=== PATIENT | female | born 1945 | race Caucasian/White ===

== ENCOUNTER 2023-08-16 13:12 | Outpatient (CLI) | payer MEDICARE, OTHER, SELFPAY ==
--- NOTE | ~2023-08-16 | MR_ITS ---
EXAMINATION: MR lumbar spine wo con DATE: 08/16/2023 14:08 INDICATION: Other low back pain. TECHNIQUE: Magnetic resonance imaging (MRI) of the lumbar spine was performed without intravenous con trast. COMPARISON: None FINDINGS: There is 23 degrees levoscoliosis of thoracolumbar spine. There is 4 mm anterolisthesis of L4 on L5. There is a chronic burst fracture of L1 with 1/5 loss of height. There is severely decrease d disc height at T11-T12, mildly decreased disc height at L1-L2, severely decreased disc height at L2 -L3, moderately decreased disc height at L3-L4 and L4-5, and severely decreased disc height at L5-S1. There are laminectomies from L2 to L4 with 4.5 x 1.8 x 7.2 cm fluid collection in the post laminecto my bed, likely a seroma. The distal spinal cord signal intensity is normal. The conus medullaris is a t L1-L2. The following disc levels are specifically discussed: L1-L2: The disc is bulging. There is severe bilateral facet joint osteoarthritis. There is mild bilat eral neural foraminal stenosis. There is mild central canal stenosis. L2-L3: The disc is bulging. There is severe bilateral facet joint osteoarthritis. There is moderate b ilateral neural foraminal stenosis. There is mild central canal stenosis. L3-L4: The disc is bulging. There is no facet joint hypertrophy. There is mild right neural foraminal stenosis. There is mild central canal stenosis. L4-L5: The disc does not extend beyond the endplate margin. There is no facet joint hypertrophy. Ther e is no neural foraminal stenosis. There is no central canal stenosis. L5-S1: The disc is bulging is an annular fissure. There is severe bilateral facet joint osteoarthriti s. There is mild right and moderate left neural foraminal stenosis. There is mild central canal steno sis. IMPRESSION: 1. Severe lumbar spondylosis. 2. Posterior fusion procedure from L3 to L5. 3. Thoracolumbar levoscoliosis. Reviewed, dictated and finalized at location E.
== END 2023-08-16 13:13 ==
PROVIDERS: PCP Internal Medicine; Visit Provider Nurse Practitioner Family
DX: M47.896 Other spondylosis, lumbar region (principal); Z98.1 Arthrodesis status
CPT/HCPCS: 72148

== ENCOUNTER 2025-02-13 13:30 | Outpatient (RCR) | payer MEDICARE, OTHER, SELFPAY ==
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
--- NOTE | 2025-01-05 15:49 | OPREHPOC ---
Outpatient Therapy Plan of Care This is a Multidisciplinary Plan of Care that may contain components documented by all disciplines (PT, OT, and ST.) PT Problem 1 PT Problem #1 Knowledge Deficit PT Goal 1 Goal / Goal Update Pt will be independent in HEP Pt will verbalize understanding of diagnosis and prognosis Target Visit 5 PT Problem 2 PT Problem #2 Impaired Gait PT Goal 1 Goal / Goal Update Pt will demonstrate equalized step length in her 2 minute walk test Target Visit 10 PT Problem 3 PT Problem #3 Impaired Strength PT Goal 1 Goal / Goal Update Pt will demonstrate 3+/5 strength or greater in all LE tested planes Target Visit 10 PT Goal 2 Goal / Goal Update Pt will demonstrate 4/5 strength or greater in all LE tested planes Target Visit 20 PT Problem 4 PT Problem #4 Impaired Balance PT Goal 1 Goal / Goal Update Pt will demonstrate 5x sit to stand test of 18 seconds or less to show improvement in functional mobility Target Visit 10 PT Goal 2 Goal / Goal Update Pt will demonstrate 5x sit to stand of 15 seconds or less for decreased fall risk Target Visit 20
--- NOTE | 2025-01-22 15:35 | PCPTNOTE ---
Pt no showed to scheduled physical therapy appointment this date.
--- NOTE | 2025-02-13 14:31 | PTOPDC ---
Assessment and note entered by Claudine Rivero, PT Evaluation Information Assessment Status Discharge ICD-10 Condition Codes (PT) Repeated falls R29.6,Difficulty Walking R26.2, Abnormalities of gait and mobility R26.9,Weakness R53.1 Subjective Information Recently was taking one step up from garage into kitchen, lost her balance and fell backwards onto one of her sides. States was holding her purse and a piece of paper and didn't grab the railing. States has arm pain, and thinks this may have been what kept her from reaching for a hand hold, or that she had her hands full. Pt states feels pretty secure getting around on level surfaces, grass and gravel and feels this isn't real good but tries to use her cane wiht this. Reports has difficulty getting up from a chair, reports having to put her hands flat and push through chair and this hurts her shoulders. Difficulty with steps also. Pt reports felt she was doing good until this last fall, states she feels she has regressed both in her shoulders and her balance. Was seeing an ortho at [facility] and cancelled this . Has gotten shots in her shoulders previously. Is not sure if this has helped or not. Ortho stated arthritis and bone on bone in the shoulders. Reports has not been using ice at home on her arms . Has been using a lot of Ibuprofen. Reports thinks she was on Celebrex or Meloxicam, and wasn't sure if was too inpatient and quite them too early. States has not tried voltaren gel. Is going out of town for [facility] and [place]. Reported Pain Level Pain Score 0: Self Report Assessment PT Clinical Summary Pt has attended therapy consistently for mobility and balance deficit, though she often complained of her bilateral shoulder pain and reports feeling this effects her balance as well. She initially had difficulty with tolerating therapy for an entire 40 minute session though this is improved. She has shown improvements in her balance scores through the [place], and improved gait pattern in her 2 min walk testing. Her sit<>stand however is worse, and she continues to be unable to stand without use of her UEs. Pt is about to go on vacation for multiple months and be unable to continue attending therapy. However she was encouraged to speak with her PCP upon return for return to therapy not only for balance and strengthening, but also for dann shoulder pain in order to improve overall functional mobility and safety with use of UEs. Thus patient is being discharged per her request, she has her updated HEP and instructions for cryotherapy for shoulder pain as maintenance. Plan of Care PT Services Indicated No
== END 2025-02-13 14:43 | disposition home or self-care (01) ==
LOC: ANHHIPT 13:30
PROVIDERS: PCP Internal Medicine; Visit Provider Internal Medicine
DX: R26.89 Other abnormalities of gait and mobility (principal); Z91.81 History of falling
CPT/HCPCS: 97110; 97112; 97161; 97530; 97750